=== PATIENT | female | born 1945 | race Caucasian/White ===

== ENCOUNTER 2022-07-12 12:04 | Day surgery (SDC) | payer MEDICARE, OTHER ==
[~2022-07-12 12:04] MED LIST: Lactated Ringers 1,000 ML IV SCH; Sodium Chloride 0.9% 10 ML Syringe FLUSH PRN; Sodium Chloride 0.9% 2.5 ML Syringe FLUSH PRN; Sodium Chloride 0.9% 20 ML SDV IV PRN
[2022-07-12] MEDS ORDERED: fentaNYL 100 MCG/2 ML SDV ONE (15:19)
[2022-07-12] MEDS ORDERED: Lidocaine 2% 5 ML SDV ONE (15:19)
[2022-07-12] MEDS ORDERED: Propofol 200 MG/20 ML SDV ONE (15:19)
== END 2022-07-12 16:05 | disposition home or self-care (01) ==
LOC: MW.SDS 12:04
PROVIDERS: ATTEND Surgery
DX: K57.30 Diverticulosis of large intestine without perforation or abscess without bleeding (principal); I10 Essential (primary) hypertension; E78.00 Pure hypercholesterolemia, unspecified; G43.909 Migraine, unspecified, not intractable, without status migrainosus; G47.30 Sleep apnea, unspecified; K80.20 Calculus of gallbladder without cholecystitis without obstruction; E66.9 Obesity, unspecified; E03.9 Hypothyroidism, unspecified; Z79.82 Long term (current) use of aspirin; Z79.899 Other long term (current) drug therapy; Z90.49 Acquired absence of other specified parts of digestive tract; Z98.890 Other specified postprocedural states; Z79.890 Hormone replacement therapy; Z68.36 Body mass index [BMI] 36.0-36.9, adult
CPT/HCPCS: 45378; J2704; J3010; J7120

== ENCOUNTER 2025-03-26 15:14 | Emergency (ER) | payer MEDICARE, OTHER ==
[2025-03-26] MEDS: Sodium Chloride 0.9% 500 ML IV ONE (15:46)
[2025-03-26 15:47] LABS: BASOPHILS ABSOLUTE AUTO 0.03 K/uL (0.00-0.20); BASOPHILS PERCENT AUTO 0.2 % (0.0-1.0); EOSINOPHILS ABSOLUTE AUTO 0.07 K/uL (0.00-0.45); EOSINOPHILS PERCENT AUTO 0.5 % (0.0-6.0); HEMATOCRIT 50.1 % (37.0-47.0); HEMOGLOBIN 15.7 g/dL (12.0-16.0); IMMATURE GRAN ABSOLUTE AUTO 0.08 K/uL (0.00-0.05); IMMATURE GRAN PERCENT AUTO 0.6 % (0.0-0.4); LYMPHOCYTES ABSOLUTE AUTO 3.76 K/uL (1.00-4.80); LYMPHOCYTES PERCENT AUTO 28.7 % (24.0-44.0); MEAN CORPUSCULAR HEMOGLOBIN 31.8 pg (28.0-32.0); MEAN CORPUSCULAR HGB CONC 31.3 g/dL (32.0-36.0); MEAN CORPUSCULAR VOLUME 101.6 fL (83.0-99.0); MEAN PLATELET VOLUME 9.4 fL (9.4-12.3); MONOCYTES ABSOLUTE AUTO 0.45 K/uL (0.00-0.80); MONOCYTES PERCENT AUTO 3.4 % (0.0-8.0); NEUTROPHILS ABSOLUTE AUTO 8.71 K/uL (1.80-7.70); NEUTROPHILS PERCENT AUTO 66.6 % (41.0-71.0); PLATELET COUNT,PLT 290 K/uL (150-400); RED BLOOD CELL COUNT 4.93 M/uL (4.10-5.30)
[2025-03-26] MEDS: Aztreonam 1 GM in Water For Injection, Sterile 10 ML IVPUSH STA (16:04)
[2025-03-26] MEDS: VANCOmycin 1.75 GM/350 ML 1.75 GM in Premix Bag 1 BAG IV ONE (16:04)
[2025-03-26 16:21] LABS: ALBUMIN 3.3 g/dL (3.4-5.0); BILIRUBIN TOTAL 0.5 mg/dL (0.2-1.0); CARBON DIOXIDE,CO2 13.9 mmol/L (21.0-32.0); CREATININE 1.6 mg/dL (0.6-1.0); EST CRCL DRUG DOSING (CG) 25.02 mL/min; LACTIC ACID 5.7 mmol/L (0.4-2.0); PROTEIN TOTAL,TP 7.2 g/dL (6.4-8.2)
[2025-03-26 16:24] LABS: CORONAVIRUS COVID-19 NAA NEGATIVE (NEGATIVE); INFLUENZA A NAA NEGATIVE (NEGATIVE); INFLUENZA B NAA NEGATIVE (NEGATIVE)
[2025-03-26 16:26] LABS: A/G RATIO 0.9 (0.9-1.6)
[2025-03-26 16:49] LABS: COLOR,URINE YELLOW; GLUCOSE,URINE NEGATIVE (NEGATIVE); KETONES,URINE NEGATIVE (NEGATIVE); LEUKOCYTE ESTERASE,URINE TRACE (NEGATIVE); NITRITE,URINE NEGATIVE (NEGATIVE); OCCULT BLOOD,URINE SMALL (NEGATIVE); PH,URINE 5.5 (5.0-8.0); PROTEIN,URINE TRACE mg/dL (NEGATIVE); UROBILINOGEN,URINE 0.2 EU/dL (<2.0)
[2025-03-26 17:06] LABS: BILIRUBIN,URINE SMALL (NEGATIVE)
[2025-03-26 17:07] LABS: APPEARANCE,URINE SLT CLOUDY
[2025-03-26 17:09] LABS: BACTERIA,URINE FEW (NEGATIVE); MUCUS,URINE MODERATE (NONE-MOD); RBC,URINE 30-40 (0-2/HPF); SQUAMOUS EPITHELIAL CELLS,UR FEW
[2025-03-26 17:41] LABS: POTASSIUM,K 4.8 mmol/L (3.5-5.1)
[2025-03-26] MEDS: Sodium Chloride 0.9% 1,000 ML IV ONE ×2 (18:23→18:24)
[2025-03-26] MEDS: Norepinephrine Bit/D5W Premix 250 ML IV SCH (18:23)
[2025-03-26] MEDS: Norepinephrine Bit/D5W Premix 250 ML ONE (18:25)
== END 2025-03-26 18:24 ==
LOC: MW.ED 15:14
DX: A41.9 Sepsis, unspecified organism (principal); N39.0 Urinary tract infection, site not specified; E87.20 Acidosis, unspecified; R10.84 Generalized abdominal pain; I10 Essential (primary) hypertension; E78.00 Pure hypercholesterolemia, unspecified; K21.9 Gastro-esophageal reflux disease without esophagitis; M19.90 Unspecified osteoarthritis, unspecified site; E03.9 Hypothyroidism, unspecified; E66.9 Obesity, unspecified; Z98.84 Bariatric surgery status; Z90.49 Acquired absence of other specified parts of digestive tract; Z79.82 Long term (current) use of aspirin; Z79.890 Hormone replacement therapy; Z79.899 Other long term (current) drug therapy
CPT/HCPCS: 0240U; 36415; 51702; 80053; 80307; 81001; 82550; 83605; 83880; 84484; 85025; 87040; 93005; 96365; 96366; 96375; 99284; 99285-25; J0457; J3372; J7030